=== PATIENT | female | born 1990 | race Hispanic/Latino ===

== ENCOUNTER 2019-05-04 05:37 | Inpatient (IN) | payer OTHER ==
[2019-05-04] MEDS ORDERED: HYDROcodone/Acetaminophen 5/325 mg Tablet PO PRN ×2 (05:47)
[2019-05-04] MEDS ORDERED: Docusate 100 MG CAP PO PRN (05:47)
[2019-05-04] MEDS ORDERED: Promethazine HCl 25 MG/ML VIAL IM PRN ×2 (05:47→08:56)
[2019-05-04] MEDS ORDERED: NS / Oxytocin 40 units/1000ml 1,000 ML IV PRN (05:47)
[2019-05-04] MEDS ORDERED: hydrALAZINE 20 MG/ML VIAL SLOW IVP PRN ×2 (05:47→16:21)
[2019-05-04] MEDS ORDERED: Lidocaine 1% (PF) 30 ML VIAL SC PRN (05:47)
[2019-05-04] MEDS ORDERED: Butorphanol Tartrate 1 MG/ML VIAL SLOW IVP PRN (05:47)
[2019-05-04] MEDS ORDERED: Ondansetron PF 4 MG/2 ML Vial IVP PRN ×3 (05:47→16:21)
[2019-05-04] MEDS ORDERED: Ibuprofen 800 MG TAB PO PRN (05:47)
[2019-05-04] MEDS ORDERED: Penicillin G Potassium 5 MILL.UNITS in Sodium Chloride 0.9% 100 ML IVPB SCH (06:00)
[2019-05-04 06:34] VITALS: BMI 36.9
[2019-05-04 06:58] LABS: Mean Corpuscular HGB CONC 31.9 g/dL (32.0-36.0); Mean Corpuscular Hemoglobin 23.6 pg (27.0-31.0); Mean Corpuscular Volume 73.9 fL (78.0-98.0); Mean Platelet Volume 9.2 fL (7.4-10.4); Platelet Count 174 thou/uL (130-400); RBC Distribution Width 15.8 % (11.5-14.5); Red Blood Cell (RBC) Count 4.25 mill/uL (4.20-5.40); White Blood Cell (WBC) Count 7.5 thou/uL (4.8-10.8)
[2019-05-04] MEDS: Lactated Ringer's 1,000 ML IV SCH ×3 (07:02→13:17)
[2019-05-04 07:48] LABS: Syphilis Antibody Nonreactive (Nonreactive); Syphilis Antibody Index 0.05 S/CO (<1.00 Non-Reactive)
[2019-05-04] MEDS ORDERED: Fentanyl 4 mcg/Bup 0.1% Cadd 100 ML ONE (07:57)
[2019-05-04 08:01] LABS: HBSAg Index 0.18 S/CO (0-0.99); Hep B Surf Ag Non-Reactive S/CO (NonReactive)
[2019-05-04] MEDS ORDERED: Naloxone HCl 0.4 mg/ml Vial IVP PRN ×2 (08:56)
[2019-05-04] MEDS ORDERED: diphenhydrAMINE 50 MG/ML VIAL IVP PRN (08:56)
[2019-05-04] MEDS ORDERED: ePHEDrine/0.9% NaCl/PF SYRINGE 50 mg/10 ml SLOW IVP PRN (08:56)
[2019-05-04] MEDS ORDERED: Lactated Ringer's 500 ML IV PRN (08:56)
[2019-05-04] MEDS ORDERED: Acetaminophen 325 MG TAB PO PRN (08:56)
[2019-05-04] MEDS ORDERED: Fentanyl 4 mcg/Bupivacaine 0.1% Cassette 100 ML EPIDURAL SCH (09:00)
[2019-05-04] MEDS ORDERED: Communication Order-Pharmacy FS SCH (09:00)
[2019-05-04] MEDS ORDERED: Bupivacaine 0.25% 10 ML VIAL ONE (10:37)
[2019-05-04] MEDS: Penicillin G 2.5 MILL.units 2.5 MILL.UNITS in Premix Bag 1 BAG IVPB SCH ×3 (10:58→19:38)
[2019-05-04] MEDS: NS w/ Oxytocin 10 units 500 ML IV SCH (11:25)
[2019-05-04] MEDS ORDERED: Benzocaine-Menthol 82.5 ML CAN TOP PRN (16:21)
[2019-05-04] MEDS ORDERED: Lanolin Ointment 7 GM TUBE TOP PRN (16:21)
[2019-05-04] MEDS ORDERED: diphenhydrAMINE 25 MG CAP PO PRN (16:21)
[2019-05-04] MEDS ORDERED: Preparation H Ointment 28 GM TUBE PR PRN (16:21)
[2019-05-04] MEDS ORDERED: Milk Of Magnesia 30 ML UDCUP PO PRN (16:21)
[2019-05-04] MEDS ORDERED: Acetaminophen/Codeine 30-300mg Tablet PO PRN ×2 (16:21)
[2019-05-04] MEDS ORDERED: Zolpidem Tartrate 5 MG TAB PO PRN (16:21)
[2019-05-04] MEDS ORDERED: Bisacodyl 10 MG SUPP PR PRN (16:21)
[2019-05-04] MEDS ORDERED: NS / Oxytocin 40 units/1000ml 1,000 ML IV SCH (16:30)
[2019-05-04] MEDS: Ferrous Sulfate 325 MG TAB PO SCH (19:39)
[2019-05-04] MEDS: Ibuprofen 800 MG TAB PO SCH (20:00)
[2019-05-04] MEDS: Docusate Calcium (SURFAK) 240 MG CAP PO SCH (20:00)
[2019-05-05] MEDS: Penicillin G 2.5 MILL.units 2.5 MILL.UNITS in Premix Bag 1 BAG IVPB SCH ×5 (00:18→18:40)
[2019-05-05] MEDS: Lactated Ringer's 1,000 ML IV SCH ×2 (00:19→13:53)
[2019-05-05] MEDS: NS w/ Oxytocin 10 units 500 ML IV SCH (00:19)
[2019-05-05] MEDS: Ibuprofen 800 MG TAB PO SCH ×2 (05:47→14:19)
[2019-05-05] MEDS: Ferrous Sulfate 325 MG TAB PO SCH ×2 (07:37→17:20)
[2019-05-05] MEDS ORDERED: Prenatal Vitamin 1 TAB PO SCH (09:00)
[2019-05-05] MEDS ORDERED: Adacel (T-DAP) 0.5 ML SYRINGE IM ONE (09:00)
[2019-05-05] MEDS: Docusate Calcium (SURFAK) 240 MG CAP PO SCH (09:24)
[2019-05-05 11:48] VITALS: TEMP 98.5
[2019-05-05 18:05] VITALS: BP 166/100
--- NOTE | 2019-05-06 01:29 | OP ---
DATE OF PROCEDURE: 05/04/2019 PREOPERATIVE DIAGNOSES: 1. A 29-year-old, G3, P2-0-0-2 at 38 weeks and 6 days with augmentation of labor. 2. Advanced cervical dilation of 5 cm, 75% effaced, and -2 station. 3. Group B Streptococcus positive. 4. Artificial rupture of membranes with clear fluid. 5. Epidural for maternal analgesia. POSTOPERATIVE DIAGNOSES: 1. A 29-year-old, G3, P2-0-0-2 at 38 weeks and 6 days with augmentation of labor. 2. Advanced cervical dilation of 5 cm, 75% effaced, and -2 station. 3. Group B Streptococcus positive. 4. Artificial rupture of membranes with clear fluid. 5. Epidural for maternal analgesia. 6. Live born male with Apgars of 9 and 9 at one and five minutes respectively, weighing 9 pounds 2 ounces. QUANTITATIVE BLOOD LOSS: 505 mL. PROCEDURE PERFORMED: Spontaneous vaginal delivery with a compound presentation. CLINICAL HISTORY: The patient is a 29-year-old G3, P2, with previous two term deliveries greater than 8.5-pound infants who had an uneventful course. She had a normal glucose testing at the appropriate times. This was a short interval for her. She presented to Labor and Delivery the morning of admission at 38 weeks and 6 days with advanced cervical dilation. The day prior she had been 4 cm, 70% effaced, and -3 station 5, 75% effaced and -2 and was difficult to see her contractions on the monitor consistently, but it was noted that she was palpating with regular contractions every 4-6 minutes. The patient was watched for several hours and requested an epidural for maternal analgesia. Thereafter, she was rechecked and was noted to be 6 cm, 75% effaced, and -2 station. Amniotomy was performed for clear fluid. She was able to get her two doses of prior to the amniotomy. The patient was given two more hours and was noted to be 8 cm, 90% effaced, and then subsequently 2 hours later was complete and +2 station. DESCRIPTION OF PROCEDURE: With poor maternal effort initially, she was able to push the vertex lower in the pelvis, however, with tug of war, she was able to make more movement and delivered the head in the ISAURO position. The head restituted and the anterior shoulder was delivered with knees to chest. The posterior shoulder was a compound presentation with the hand on the chest. After both shoulders were delivered, the infant's body came out easily. The was vigorous and was crying vigorously. The cord was doubly clamped and cut by the father of the baby and placed on the maternal abdomen for continued stimulation. The cord blood was obtained and the placenta was delivered spontaneously intact with a three-vessel cord. Thereafter, the patient was massaged, however, there was a delay in starting the Pitocin and the patient subsequently had a release of significant amount of blood, which she eventually stopped once the Pitocin was spiked in and started. The vagina, introitus, and cervix were inspected and noted to be hemostatic and free from any bleeding lacerations. There was a first-degree perineal tear right at the base which was reapproximated for cosmetic and comfort reasons with a 3-0 Vicryl. The knot was buried internally behind the hymen and the closure was hemostatic. The patient was cleansed and de-draped and allowed to recover in Labor and Delivery with her infant. Again, the was a live born male with Apgars of 9 and 9 at one and five minutes respectively, weighing 9 pounds 2 ounces. All needle, sponge, lap, and instrument counts were correct x2 at the end of the procedure. There were no other issues surrounding this delivery. Job ID: [id number]
== END 2019-05-05 18:45 | disposition home or self-care (01) | DRG 807 ==
LOC: L&D 05:37 → 3SW 18:41
PROVIDERS: ADMIT Obstetrics & Gynecology; ATTEND Obstetrics & Gynecology
PROC: 10E0XZZ Delivery of Products of Conception, External Approach (ICD-10-PCS; principal; 2019-05-04)
PROC: 10907ZC Drainage of Amniotic Fluid, Therapeutic from Products of Conception, Via Natural or Artificial Opening (ICD-10-PCS; 2019-05-04)
PROC: 0HQ9XZZ Repair Perineum Skin, External Approach (ICD-10-PCS; 2019-05-04)
DX: O36.63X0 Maternal care for excessive fetal growth, third trimester, not applicable or unspecified (principal); Z37.0 Single live birth; Z3A.38 38 weeks gestation of pregnancy; O70.0 First degree perineal laceration during delivery; O99.824 Streptococcus B carrier state complicating childbirth
CPT/HCPCS: 36415; 51702; 85027; 86780; 86850; 86900; 86901; 87340; J2540; J2590; J3490; S0020